=== PATIENT | female | born 1965 | race Caucasian/White ===

== ENCOUNTER 2017-02-06 17:09 | Emergency (ER) | payer SELFPAY ==
--- NOTE | 2017-02-06 17:51 | RADIOLOGY REPORT ---
HISTORY: Acute trauma. Pain. Fracture. REFERENCE STUDY: None. PROCEDURE: 3 view(s) obtained. FINDINGS: There is evidence of a large joint effusion or lipohemarthrosis. Examination is grossly positive for a comminuted depressed fracture of the lateral tibial plateau. Th ere appears to be 8 mm of depression of the lateral tibial plateau. IMPRESSION: Lateral tibial plateau fracture with 8 mm of depression. Final Electronic Signature: This report was electronically signed by Brian Castillo MD, FACR on 5:48 PM. kendra /
--- NOTE | 2017-02-06 18:47 | ER PHYSICIAN DOCUMENTATION ---
Physician Documentation [facility] Name:Nina Bhakta Age:51 yrs Sex:Female :1965 Arrival Date:02/06/2017 Time:17:09 Bed6 Private MD: Humberto Mathew Disposition: 02/06/17 18:14 Discharged to Home/Self Care. Impression: Tibial Plateau Fracture. - Condition is Good. - Discharge Instructions: FRACTURE, Lower Extremity. - Prescriptions for Percocet 5- 325 mg Oral Tablet - take 1 tablet by ORAL route every 6 hours As needed; 20 tablet. - Medical Reconciliation form form. - Follow up: Private Physician; When: PEDRO; Reason: Continuance of care. - Problem is new. - Symptoms have improved. - Notes: Keep knee in brace. Use crutches. Follow up with ortho P[facility]RO. You need surgery HPI: 02/06 17:42 This 51 yrs old Female presents to ER with complaints of Knee Injury - L. madie 17:42 The patient presents with an injury, pain. The complaints affect the left knee. madie Context: The problem was sustained at a park, resulted from twisting of the extremity, while jumping. Onset: The symptom(s)/episode began/occurred just prior to arrival. Modifying factors: the symptoms are aggravated by movement, weight bearing, bending knee. Associated signs and symptoms: Pertinent negatives fever. Treatment prior to arrival includes: no previous treatment. The patient has not experienced similar symptoms in the past. The patient has not recently seen a physician. Pt was jumping across the river and twisted his knee. . Historical: - Allergies: No known drug Allergies; - Home Meds: 1. Levothroid Oral 2. Estradiol Oral 3. progesterone micronized oral - PMHx: THYROID PROBLEM; - PSHx: HYSTERECTOMY; - Tetanus: < 10 years. - Ebola Screening: : Patient negative for fever greater than or equal to 101.5 degrees Fahrenheit, and additional compatible Ebola Virus Disease symptoms. Patient denies exposure to infectious person. Patient denies travel to an Ebola-affected area in the 21 days before illness onset. No symptoms or risks identified at this time. . - Immunization history: Flu Vaccine unknown. - Social history: Smoking status: Patient states was never smoker of tobacco. ROS: 17:43 Constitutional: Negative for fever. jm 17:43 MS/extremity: Positive for injury or acute deformity, swelling, tenderness. 17:43 Skin: Positive for swelling. 17:43 Neuro: Negative for numbness, weakness. 17:43 All other systems are negative. Exam: 17:46 Constitutional: The patient appears alert, awake, obese. 17:46 Cardiovascular: Rate: normal, Rhythm: regular. 17:46 Respiratory: the patient does not display signs of respiratory distress, Respirations: normal. 17:46 Musculoskeletal/extremity: Extremities: grossly normal except: noted in the left knee: decreased ROM, pain, swelling, ROM: limited active range of motion due to pain, limited passive range of motion due to pain, in the left knee. 17:46 Skin: Appearance: Color: pink, swelling, that are moderate, no rash present. Vital Signs: 17:42 BP 127 / 79; Pulse 98; Resp 14; Pulse Ox 92% on R/A; Weight 86.18 kg (R); Height 5 ft. tg 2 in. (157.48 cm); Pain 2/10; 18:45 Pulse 88; Resp 16; Temp 101(O); Pulse Ox 96% ; Pain 2/10; tg 17:42 Body Mass Index 34.75 (86.18 kg, 157.48 cm) tg MDM: 17:14 Patient medically screened. 18:15 Differential diagnosis: closed fracture, contusion. Data reviewed: vital signs, nurses notes, radiologic studies, and as a result, I will discharge patient. Test interpretation: by ED physician or midlevel provider: plain radiologic studies. Counseling: I had a detailed discussion with the patient and/or guardian regarding: the historical points, exam findings, and any diagnostic results supporting the discharge/admit diagnosis, radiology results, the need for outpatient follow up, a orthopedic surgeon, for surgery on tib plateau fx. . 02/06 17:53 Order name: KNEE; [address] [place] [id number] EDIL 02/06 18:18 Order name: Ice Packs; Complete Time: 18:38 02/06 18:18 Order name: ORTHO: Knee Immobilizer; Complete Time: 18:38 02/06 18:18 Order name: ORTHO: Crutches & Training; Complete Time: 18:38 Dispensed Medications: 18:38 Drug: HYDROcodone-acetaminophen 5 mg-325 mg 1 tabs; Route: PO; tg 18:45 Follow up: Response: Medication administered at discharge. tg Signatures: Thierno Charles RN RN tg Humberto Trejo MD MD jm
--- NOTE | 2017-02-06 18:47 | ER NURSING DOCUMENTATION ---
Nurse's Notes [facility] Name:Nina Bhakta Age:51 yrs Sex:Female :1965 Arrival Date:02/06/2017 Time:17:09 Bed6 Private MD: Diagnosis:Tibial Plateau Fracture Presentation: 02/06 17:14 Acuity: TERRY 3 tg 17:43 Presenting complaint: Patient states: Left knee pain- jumped from one rock to another tg and slipped, causing a twist in her knee. Able to bear weight, but very painful. Transition of care: patient was not received from another setting of care. 17:43 Method Of Arrival: Private Vehicle tg Triage Assessment: 17:46 General: Appears uncomfortable, Behavior is cooperative, pleasant. Pain: Complains of tg pain in left knee. Neuro: Level of Consciousness is awake, alert. Cardiovascular:. Respiratory: Respiratory effort is even, unlabored. Derm: Skin is pink, warm & dry. Musculoskeletal: Range of motion limited in left knee. Historical: - Allergies: No known drug Allergies; - Home Meds: 1. Levothroid Oral 2. Estradiol Oral 3. progesterone micronized oral - PMHx: THYROID PROBLEM; - PSHx: HYSTERECTOMY; - Tetanus: < 10 years. - Ebola Screening: : Patient negative for fever greater than or equal to 101.5 degrees Fahrenheit, and additional compatible Ebola Virus Disease symptoms. Patient denies exposure to infectious person. Patient denies travel to an Ebola-affected area in the 21 days before illness onset. No symptoms or risks identified at this time. . - Immunization history: Flu Vaccine unknown. - Social history: Smoking status: Patient states was never smoker of tobacco. Screenin:48 Infectious Disease Risk Unable to Obtain. Abuse screen: Denies threats or abuse. Denies tg injuries from another. Nutritional screening: No deficits noted. Vital Signs: 17:42 BP 127 / 79; Pulse 98; Resp 14; Pulse Ox 92% on R/A; Weight 86.18 kg (R); Height 5 ft. tg 2 in. (157.48 cm); Pain 2/10; 18:45 Pulse 88; Resp 16; Temp 101(O); Pulse Ox 96% ; Pain 2/10; tg 17:42 Body Mass Index 34.75 (86.18 kg, 157.48 cm) tg ED Course: 17:13 Patient arrived in ED. ama 17:14 Humberto Trejo MD is Attending Physician. madie 17:14 Triage completed. tg 17:23 Port Xray Completed. pm1 17:41 Thierno Charles RN is Primary Nurse. tg 17:47 Arm band placed on. tg 17:48 Valuables Remains with patient. tg 17:48 Affected limb iced. Affected limb elevated. tg 18:34 Crutch training done. Knee immobilizer applied on left knee. tg Administered Medications: 18:38 Drug: HYDROcodone-acetaminophen 5 mg-325 mg 1 tabs; Route: PO; tg 18:45 Follow up: Response: Medication administered at discharge. tg Outcome: 18:14 Discharge ordered by . madie 18:45 Discharged to home via wheelchair, with friend. tg 18:45 Condition: stable 18:45 Discharge Assessment: Patient awake, alert and oriented x 3. No cognitive and/or functional deficits noted. Patient verbalized understanding of disposition instructions. 18:45 Discharge instructions given to patient, friend, Instructed on discharge instructions, follow up and referral plans. medication usage, Demonstrated understanding of instructions, crutch walking, medications, Prescriptions given X 1. 18:47 Patient left the ED. tg 02/07 12:35 Discharge F/U Call: Unable to reach: left voicemail: tg Signatures: Thierno Charles RN RN Humberto Trejo MD MD jm McBride, Philisha pm1 Chava Harish, Reg Reg ama
== END 2017-02-06 18:47 | disposition home or self-care (01) ==
LOC: ER 17:09
DX: S82.145A Nondisplaced bicondylar fracture of left tibia, initial encounter for closed fracture (principal); W18.49XA Other slipping, tripping and stumbling without falling, initial encounter; Y92.838 Other recreation area as the place of occurrence of the external cause; Y93.89 Activity, other specified; Z79.899 Other long term (current) drug therapy
CPT/HCPCS: 99284